=== PATIENT | female | born 1945 ===

== ENCOUNTER → 2020-12-08 07:00 | Outpatient (CLI) | payer OTHER | END | disposition home or self-care (01) | LOC: PPH VACUNA 07:00 | PROVIDERS: ATTEND Emergency Medicine Pediatric Emergency Medicine | DX: Z23 Encounter for immunization (principal) ==

== ENCOUNTER 2021-08-10 10:30 | Outpatient (CLI) | payer OTHER | END 2021-08-10 10:45 | disposition home or self-care (01) | LOC: PPH VACUNA 10:30 | PROVIDERS: ATTEND Emergency Medicine Pediatric Emergency Medicine | DX: Z23 Encounter for immunization (principal) ==

== ENCOUNTER 2023-11-06 10:20 | Outpatient (CLI) | payer OTHER | END 2023-11-06 10:22 | disposition home or self-care (01) | LOC: NUCLEAR 10:20 | DX: I82.401 Acute embolism and thrombosis of unspecified deep veins of right lower extremity (principal) ==